=== PATIENT | male | born 1990 | race Caucasian/White ===

== ENCOUNTER 2022-07-04 18:37 | Emergency (ER) | payer MEDICAID ==
[~2022-07-04] VITALS: Ht 167.6 cm; Wt 81.6 kg
[2022-07-04] MEDS ORDERED: LORAZEPAM 1 MG TABLET ONE (21:08)
[2022-07-04] MEDS: LORAZEPAM 0.5 MG TABLET PO ONE (21:09)
[2022-07-04] MEDS ORDERED: LORA-259 PO (21:14)
--- NOTE | 2022-07-04 21:38 | NUR ---
Patient discharged to home in stable condition. Written and verbal after care instructions given. Patient verbalizes understanding of instructions. Stressed follow up or return to ER for worsening s/s. Patient walked out with steady gait.
[2022-07-04] MEDS ORDERED: PSEUDOEPHEDRINE HCL 30 MG TABLET ONE (21:45)
[2022-07-04] MEDS: PSEUDOEPHEDRINE HCL 30 MG TABLET PO ONE (21:50)
[2022-07-04 22:07] VITALS: BP 145/98
== END 2022-07-04 21:45 | disposition home or self-care (01) ==
LOC: ER 18:41
DX: F41.9 Anxiety disorder, unspecified (principal); F14.10 Cocaine abuse, uncomplicated; Z59.00 Homelessness unspecified; R03.0 Elevated blood-pressure reading, without diagnosis of hypertension
CPT/HCPCS: 93005; A4663

== ENCOUNTER 2023-02-14 11:21 | Emergency (ER) | payer MEDICAID ==
[~2023-02-14] VITALS: Ht 170.2 cm; Wt 77.1 kg
[~2023-02-14 11:21] MED LIST: LORA-259 PO
[2023-02-14] MEDS ORDERED: LORA0.5T48 PO (11:41)
[2023-02-14 11:49] VITALS: BP 135/79; TEMP 98.5; O2SAT 100
== END 2023-02-14 11:50 | disposition home or self-care (01) ==
LOC: ER 11:21
DX: F41.9 Anxiety disorder, unspecified (principal); Z79.899 Other long term (current) drug therapy
CPT/HCPCS: A4663

== ENCOUNTER 2023-03-14 21:16 | Emergency (ER) | payer MEDICAID ==
[~2023-03-14] VITALS: Ht 170.2 cm; Wt 81.6 kg
[~2023-03-14 21:16] MED LIST changes: +LORA0.5T48 PO
[2023-03-14] MEDS ORDERED: KETOROLAC TROMETHAMINE 30 MG INJ IM ONE (21:45)
[2023-03-14] MEDS ORDERED: KETOROLAC TROMETHAMINE 30 MG INJ ONE (21:53)
[2023-03-15] MEDS ORDERED: TRAMADOL HCL 50 MG TABLET PO ONE (00:15)
[2023-03-15] MEDS ORDERED: TRAMADOL HCL 50 MG TABLET ONE (00:20)
[2023-03-15] MEDS ORDERED: TRAM50TA2 PO (00:21)
[2023-03-15 01:28] VITALS: BP 138/76; TEMP 97.5; O2SAT 100
== END 2023-03-15 01:28 | disposition home or self-care (01) ==
LOC: ER 21:17
DX: S20.211A Contusion of right front wall of thorax, initial encounter (principal); F17.210 Nicotine dependence, cigarettes, uncomplicated; Z79.899 Other long term (current) drug therapy; V00.131A Fall from skateboard, initial encounter; Y93.51 Activity, roller skating (inline) and skateboarding; Y92.89 Other specified places as the place of occurrence of the external cause; Y99.8 Other external cause status
CPT/HCPCS: 99283; 71101; 96372; J1885; A4606; A4663

== ENCOUNTER 2023-11-24 20:41 | Emergency (ER) | payer MEDICAID ==
[~2023-11-24] VITALS: Ht 167.6 cm; Wt 74.8 kg
[~2023-11-24 20:41] MED LIST changes: +TRAM50TA2 PO
[2023-11-24] MEDS ORDERED: IBUPROFEN 400 MG TABLET ONE (22:28)
[2023-11-24] MEDS ORDERED: ACETAMINOPHEN 500 MG TABLET ONE (22:28)
[2023-11-24] MEDS: IBUPROFEN 400 MG TABLET PO ONE (22:33)
[2023-11-24] MEDS: ACETAMINOPHEN 500 MG TABLET PO ONE (22:33)
[2023-11-24 22:34] VITALS: BP 145/92; O2SAT 99
== END 2023-11-24 22:35 | disposition home or self-care (01) ==
LOC: ER 20:45
DX: T81.30XA Disruption of wound, unspecified, initial encounter (principal); F17.200 Nicotine dependence, unspecified, uncomplicated; Z20.822 Contact with and (suspected) exposure to COVID-19; Z79.899 Other long term (current) drug therapy; Z79.52 Long term (current) use of systemic steroids; Z60.2 Problems related to living alone; Y92.89 Other specified places as the place of occurrence of the external cause
CPT/HCPCS: A4606; A4663; A9150